=== PATIENT | female | born 1990 | race Caucasian/White ===

== ENCOUNTER 2024-11-04 01:59 | Emergency (ER) | payer BC, SELFPAY ==
[2024-11-04 02:04] VITALS: BP 184/110; PULSE 94; RESP 16; TEMP 36.3; O2SAT 98
--- NOTE | 2024-11-04 02:15 | DI.CT_ITS ---
Exam(s) CT ABDOMEN PELVIS WO EXAM: CT ABDOMEN PELVIS WO CLINICAL HISTORY: right flank pain, eval for stone. TECHNIQUE: Imaging Protocol: Axial computed tomography images with coronal and sagittal reformatted images were created and reviewed. COMPARISON: No exams were available for comparison FINDINGS: ABDOMEN: Lung Bases: Normal where visualized. Liver: Normal density. No measurable mass. Gallbladder and biliary tract: No radiodense calculus or biliary ductal dilation. Pancreas: Normal density, no abnormal calcifications or inflammatory process. Spleen: Normal. Kidneys: Normal size, contour and axis.Nonobstructing stones are seen in the superior pole of the lef t kidney. The left renal collecting system is unremarkable. There is a 3 mm stone at the right UVJ with mild hydronephrosis. There is a 2.7 x 2.6 cm cystic lesion in the inferior pole of the right ki dney with layering hyperdense material. There is a 3 mm nonobstructing stone in the lower pole of th e right kidney. Adrenal glands: No mass is seen. Lymph nodes: Within normal limits. Abdominal Aorta: Abdominal portion non-dilated. PELVIS: Bladder:The urinary bladder is incompletely distended but grossly unremarkable. Bowel: No obstruction or bowel wall thickening. No evidence of appendicitis. Peritoneal cavity: No ascites, collection or mesenteric inflammatory response. No free air. Reproductive organs: There is an IUD which appears in good position. Bones: Within normal limits. Soft Tissues: Within normal limits. IMPRESSION: 1. 3 mm right UVJ stone causing mild hydronephrosis. 2. Bilateral nephrolithiasis. Calcification in the upper pole of the left kidney likely representing a stone. Calcification in the lower pole of the right kidney likely reflecting a stone. 3. 2.7 x 2.6 cm cystic lesion in the inferior pole of the right kidney with layering calcium. 4. The preliminary [facility] report was reviewed. RADIATION DOSE DELIVERED: 857.05mGy.cm Total DLP DATA REPOSITORY: All CT scans at this facility are submitted to the National Radiology Data Registry (NRDR) Dose Index Registry (DIR) with the [employer] ([employer]). RADIATION OPTIMIZATION: All CT scans at this facility use at least one of these dose optimization te chniques: automated exposure control; mA and/or kV adjustment per patient size (includes targeted exa ms where dose is matched to clinical indication); or iterative reconstruction.
--- NOTE | 2024-11-04 02:20 | W.ED.GENAD ---
Discharge Plan Disposition Patient Disposition: Home Condition: Good Discharge Details Clinical Impression: Kidney stone on right side, Lesion of left qagan tayagungin kidney ED Provider: Harshad Landaverde Home Meds and New Rx's Prescriptions: New ketorolac 10 mg tablet 10 mg PO TID 5 Days Qty: 15 0RF tamsulosin [Flomax] 0.4 mg capsule 0.4 mg PO DAILY Qty: 10 0RF No Action buspirone 5 mg tablet 5 mg PO BID Discharge Instructions Instructions: Kidney Stone, Adult ED, Kidney stone diet Additional Instructions: At this time you have evidence of a small kidney stone. This is likely the cause of your symptoms. This should pass within the next 12 to 48 hours, if not earlier. Please drink plenty of fluids, 10 to 12 cups/day at least. Make sure to put a small bit of lemon juice in every water every time you drink to help eliminate the stones. Please take 10mg of Ketorolac every 8 hours and 1000 mg of Tylenol every 6 hours as needed for pain. These are the maximum doses of these medicines. Please take the Flomax as directed. This will help in expediting the passage of your kidney stone. If your pain stops, you can stop taking the Flomax. Please strain your urine to collect the stone. This can then be analyzed by your family doctor. If you do not have resolution of your symptoms after 48 to 72 hours please follow-up closely with your family doctor or return here for reassessment. If you notice any worsening of your symptoms, or any new symptoms such as inability to urinate, vomiting, diarrhea, fever, chills, shortness of breath, chest pain, numbness, weakness, or fainting , please return immediately to the emergency department for reevaluation. Please follow up with your primary care provider as soon as possible for reassessment and reevaluation. As always, it was a pleasure participating in your medical care today. HPI General Date/Time Provider Initiated Documentation: 11/04/24 02:01. HPI Narrative: This is a pleasant 33-year-old female with a past medical history of anxiety, asthma, depression, BMI of 45.8, PTSD, with an IUD in place, who presents today for evaluation of right flank pain. Pain began about 22 hours ago. It was mild and achy in the right flank, improved with time however this evening at around 9 PM the pain became severe, it would come and go in severity. It be sharp and stabbing and radiate from the right flank to the right groin. She denies any fever or chills. She admits to nausea without vomiting. She does admit to occasional diarrhea. She denies any vaginal discharge or vaginal bleeding. No other complaints at this time. Related Data Home Medications ?Medication ?Instructions ?Recorded ?Confirmed buspirone 5 mg tablet 5 mg PO BID 11/04/24 11/04/24 ketorolac 10 mg tablet 10 mg PO TID 5 days #15 tabs 11/04/24 tamsulosin 0.4 mg capsule (Flomax) 0.4 mg PO DAILY #10 caps 11/04/24 Previous Rx's ?Medication ?Instructions ?Recorded ketorolac 10 mg tablet 10 mg PO TID 5 days #15 tabs 11/04/24 tamsulosin 0.4 mg capsule (Flomax) 0.4 mg PO DAILY #10 caps 11/04/24 Allergies Allergy/AdvReac Type Severity Reaction Status Date / Time No Known Allergies Allergy Unverified 11/04/24 02:09 General Stated Complaint: FlankPain DORA: 3 Exam Narrative Exam Narrative: 1.Const: Well-nourished, Well-developed, appearing stated age 2.Eyes: PERRL, no conjunctival injection, and symmetrical lids. 3.ENT: Atraumatic external nose and ears. Moist MM. Neck: Symmetric, trachea midline, No thyromegaly. 4.CVS: +S1/S2, Peripheral pulses 2+ and equal in all extremities. Brisk capillary refill in all extremities. 5.RESP: Unlabored respiratory effort. Clear to auscultation bilaterally. No wheezes rales or rhonchi 6.GI: Soft, no guarding or rebound. Minimal achiness in the right lower abdominal region. No focal pain to McBurney's point. Negative Wade sign. No significant CVA tenderness. 7.MSK: Normocephalic/Atraumatic, Extremities w/o deformity or ttp No cyanosis or clubbing, Normal movement of all extremities 8.Skin: Warm, Dry. No rashes or lesions. 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 Sensation grossly intact, no focal neurologic deficits. 10.Psych: (AAO) x3. Appropriate mood and affect Course Vital Signs Vital signs: Vital Signs Temperature 36.3 C L 11/04/24 02:04 Pulse 94 H 11/04/24 02:04 Respiratory Rate 16 11/04/24 02:04 Blood Pressure 184/110 H 11/04/24 02:04 Pulse Oximetry 98 11/04/24 02:04 Temperature 36.3 C L 11/04/24 02:04 Temperature Source Temporal Artery Scan 11/04/24 02:04 Pulse 94 H 11/04/24 02:04 Respiratory Rate 16 11/04/24 02:04 Blood Pressure 184/110 H 11/04/24 02:04 Pulse Oximetry 98 11/04/24 02:04 Oxygen Delivery Method Room Air 11/04/24 02:04 Oxygen Flow Rate 0 11/04/24 02:04 Pain Level 10 11/04/24 02:04 Medical Decision Making This is a pleasant 33-year-old female with a past medical history of anxiety, asthma, depression, BMI of 45.8, PTSD, with an IUD in place, who presents today for evaluation of right flank pain. Pain began about 22 hours ago. It was mild and achy in the right flank, improved with time however this evening at around 9 PM the pain became severe, it would come and go in severity. It be sharp and stabbing and radiate from the right flank to the right groin. She denies any fever or chills. She admits to nausea without vomiting. She does admit to occasional diarrhea. She denies any vaginal discharge or vaginal bleeding. No other complaints at this time. Exam demonstrates well-appearing female, mild right lower quadrant achiness. No CVA tenderness. Differential includes kidney stone, less likely appendicitis. Pyelonephritis is certainly of concern. Will get CT imaging to rule out appendectomy or stone, will treat with Toradol and Ofirmev and Zofran, will rehydrate, monitor closely and reassess. 3:[address] scan shows evidence of a kidney stone, no white count bandemia or left shift cell, renal function demonstrates a creatinine of 1.1, GFR 68. Patient's pain is completely resolved after Toradol and Ofirmev and Flomax. Patient feeling much better. Urinalysis shows ketones, but no leuk esterase and negative nitrites, no evidence to suggest infection. No evidence of pyelonephritis. Symptoms are consistent with kidney stone. Will give strainer, Toradol, and Flomax for home. Discussed the importance of diet changes including decrease salt intake, and lemon juice and all the water. Discussed red flags for which to return. I have extensively reviewed the treatment plan and discharge instructions with the patient. I have addressed all patient concerns at this time. The patient was made aware of what symptoms to monitor for that would warrant a return to the emergency department. Discussed the plan with the patient, they demonstrate verbal understanding and agreement with our assessment and plan at this time. The documentation in this chart was dictated using [employer] dictation software. Please excuse any dictation errors. Additionally there is a small lesion in the left kidney, likely a cyst. However I did discuss this with the patient did recommend follow-up and repeat imaging in the next 6 to 12 months. FINDINGS: Limitations: Evaluation for some pathologies is limited without contrast. Liver: No focal hepatic lesion identified, within the limitations of a noncontrast examination. Gallbladder and biliary ducts: No radiodense gallbladder calculi seen. Pancreas: No CT evidence for acute pancreatitis. Spleen: No splenomegaly. Adrenal glands: No mass. Kidneys and ureters: Hypodense lesion in the left kidney, statistically likely to represent a cyst but indeterminate on this examination. Cannot exclude hyperdense cyst or solid lesion. Consider nonemergent followup. Right renal cyst with layering calcium. Small right renal calculus. Right hydroureteronephrosis. 3-4 mm calculus at the right ureterovesical junction. No left hydronephrosis. Stomach and bowel: No intestinal obstruction is appreciated. Appendix: No evidence of appendicitis. Intraperitoneal space: No free air. Vasculature: No abdominal aortic aneurysm. Lymph nodes: Nonspecific mesenteric and retroperitoneal lymph nodes. Urinary bladder: The urinary bladder appears mildly thickened but is incompletely distended. Reproductive: Intrauterine device. Bones/joints: No pertinent acute abnormality seen. Soft tissues: No pertinent acute abnormality seen. IMPRESSION: 1. Obstructing right ureterovesical junction calculus. 2. Additional findings as above. Thank you for allowing us to participate in the care of your patient. Dictated and Authenticated by: Keshia Baez MD 11/04/2024 3:17 AM Eastern Time ([place] & [place]) Quality:SDOH Health Related Social Needs: No Data to Display PFSH All Active Problems (Updated 11/04/24 @ 03:26 by Harshad Landaverde DO) Lesion of left qagan tayagungin kidney (Acute) Kidney stone on right side (Acute) Social History Smoking/Tobacco Use Status: Never Smoking risk assessment performed?: Yes Alcohol Intake: never Drug use: Never Substance use type: does not use Do you feel safe at home: Yes Do you feel safe in your relationship?: Yes
[2024-11-04] MEDS: Ondansetron 4 MG/2 ML VIAL IVP (02:30)
[2024-11-04] MEDS: ACETAMINOPHEN 1,000 MG/100 ML BTL 400 MG IVPB (02:30)
[2024-11-04] MEDS: Ketorolac 30 MG/ML VIAL IVP (02:30)
[2024-11-04] MEDS: Tamsulosin 0.4 MG CAPCR PO (02:39)
[2024-11-04 02:45] LABS: Lipase 35 U/L (<78)
[2024-11-04 02:50] LABS: ALT 33 U/L (14-59); AST 21 U/L (15-37); Alkaline Phosphatase 97 U/L (46-116); Anion Gap 7.4 mmol/L (3-11); BUN 12 mg/dL (7-18); Bilirubin, Total 0.4 mg/dL (0.2-1.0); CO2 27.6 mmol/L (21.0-32.0); CREATININE 1.1 mg/dL (0.55-1.02); Calcium 9.3 mg/dL (8.5-10.1); Chloride 107 mmol/L (98-107); Estimated GFR 68.47 (mL/min/1.73m2); Glucose 102 mg/dL (74-106); Potassium 3.5 mmol/L (3.5-5.1); Sodium 142 mmol/L (136-145); Total Protein 7.1 g/dL (6.4-8.2)
[2024-11-04 02:59] LABS: Abs Immature Grans 0.03 10^3/uL (0.0-0.06); Absolute Basophil Count 0.07 10^3/uL (0.0-0.2); Absolute Eosinophil Count 0.44 10^3/uL (0.0-0.7); Absolute Lymphocyte Count 3.58 10^3/uL (1.2-3.4); Absolute Monocyte Count 0.94 10^3/uL (0.1-0.8); Absolute Neutrophil Count 5.73 10^3/uL (1.2-6.7); Basophils % 0.6 %; Eosinophils % 4.1 %; HCT 41.5 % (36.0-46.0); HGB 14.1 g/dL (11.2-15.7); Immature Grans % 0.3 %; Lymphocytes % 33.2 %; MCV 85 fL (80-95); MPV 10.1 fL (8.0-11.0); Monocytes % 8.7 %; Neutrophils % 53.1 %; Platelet Count 282 10^3/uL (130-400); RBC 4.86 10^6/uL (3.93-5.22); RDW 12.5 % (11.7-14.6); RDW-SD 38.5 fL; WBC 10.79 10^3/uL (4.4-10.8)
[2024-11-04 03:08] LABS: Bilirubin Small (Negative); Blood Moderate (Negative); Clarity Sl Cloudy (Clear); Glucose Negative (Negative); Ketones Trace mg/dL (Negative); Leukocyte Esterase Negative (Negative); Nitrite Negative (Negative); Specific Gravity >= 1.030 (1.005-1.025); Urobilinogen 0.2 mg/dL (Up to 0.2); pH 5.5 (5-8)
[2024-11-04 03:14] LABS: Bacteria Moderate HPF (Negative); C & S Indicated? No; Casts Negative LPF (Negative); Crystals Negative HPF (Negative); Epithelial Cells Few HPF (Negative); Mucus Moderate (Negative); WBC Negative HPF (0-5)
--- NOTE | 2024-11-04 03:19 | DI.[facility]_ITS ---
PROCEDURE INFORMATION: Exam: CT Abdomen And Pelvis Without Contrast Exam date and time: 11/04/2024 2:44 AM Age: 33 years old Clinical indication: R flank pain, eval for stone TECHNIQUE: Imaging protocol: Computed tomography of the abdomen and pelvis without contrast. Radiation optimization: All CT scans at this facility use at least one of these dose optimization techniques: automated exposure control; mA and/or kV adjustment per patient size (includes targeted exams where dose is matched to clinical indication); or iterative reconstruction. COMPARISON: No relevant prior studies available. FINDINGS: Limitations: Evaluation for some pathologies is limited without contrast. Liver: No focal hepatic lesion identified, within the limitations of a noncontrast examination. Gallbladder and biliary ducts: No radiodense gallbladder calculi seen. Pancreas: No CT evidence for acute pancreatitis. Spleen: No splenomegaly. Adrenal glands: No mass. Kidneys and ureters: Hypodense lesion in the left kidney, statistically likely to represent a cyst but indeterminate on this examination. Cannot exclude hyperdense cyst or solid lesion. Consider nonemergent followup. Right renal cyst with layering calcium. Small right renal calculus. Right hydroureteronephrosis. 3-4 mm calculus at the right ureterovesical junction. No left hydronephrosis. Stomach and bowel: No intestinal obstruction is appreciated. Appendix: No evidence of appendicitis. Intraperitoneal space: No free air. Vasculature: No abdominal aortic aneurysm. Lymph nodes: Nonspecific mesenteric and retroperitoneal lymph nodes. Urinary bladder: The urinary bladder appears mildly thickened but is incompletely distended. Reproductive: Intrauterine device. Bones/joints: No pertinent acute abnormality seen. Soft tissues: No pertinent acute abnormality seen. IMPRESSION: 1. Obstructing right ureterovesical junction calculus. 2. Additional findings as above. Dictated and Authenticated by: Keshia Baez MD. Orderin Akhil Patricia MD
== END 2024-11-04 03:41 | disposition home or self-care (01) ==
LOC: ER 04:13
PROVIDERS: Emergency Provider Student in an Organized Health Care Education/Training Program; PCP Physician Assistant Medical
DX: N20.0 Calculus of kidney (principal); N28.89 Other specified disorders of kidney and ureter; R11.0 Nausea; R19.7 Diarrhea, unspecified
CPT/HCPCS: 99284 ×2; 96375; 81025; 80053; 83690; 96365; 74176; 81003; 81015; 85025; J0131; J1885; J2405